=== PATIENT | female | born 1985 | race Caucasian/White ===

== ENCOUNTER 2020-12-18 15:01 | Emergency (ER) | payer SELFPAY ==
[~2020-12-18] VITALS: Ht 170.2 cm; Wt 77.1 kg
[2020-12-18 15:22] VITALS: BP 136/84
--- NOTE | 2020-12-18 15:28 | NUR ---
PT TO AWAIT IN LOBBY
--- NOTE | 2020-12-18 15:43 | NUR ---
PT TAKEN TO XRAY VIA W/C
--- NOTE | 2020-12-18 15:55 | NUR ---
PT RETURNED TO LOBBY
--- NOTE | 2020-12-18 16:15 | NUR ---
MAGALYS CERVANTES EXAMINING PT
--- NOTE | 2020-12-18 16:25 | NUR ---
35 y/o F BIB self from home c/o L knee pain s/p mechanical fall while hiking. Patient A&Ox4, wheelchair assisted, states she slipped and fell and landed onto a sharp rock causing laceration to L knee. Patient noted with bruising to L ankle, L anterior cleary, and abrasions to L anterior thigh. Bleeding controlled prior to arrival. States worsens with ambulating. Rates 6/10, sharp/constant, non-radiating. Denies numbness, tingling, loss of sensation. Denies other extremity pain or injury. Bed locked in lowest position, side rails x 1, call light in reach. Tetanus 6-7 years ago. PMh/Sx/Meds: Denies NKA
[2020-12-18] MEDS: LIDOCAINE MPF 1% 10 MG/ML VIAL INJ ONE ×2 (16:38→16:54)
[2020-12-18] MEDS: BACITRACIN OINT 500 UNITS/GM PKT TP ONE ×2 (16:38→16:54)
[2020-12-18] MEDS: KETOROLAC 30 MG/ML VIAL IM ONE (16:40)
--- NOTE | 2020-12-18 16:40 | NUR ---
EMT AT BEDSIDE FOR WOUND IRRIGATION
[2020-12-18] MEDS ORDERED: BACITRACIN OINT 500 UNITS/GM PKT TP ONE (16:41)
[2020-12-18] MEDS ORDERED: LIDOCAINE MPF 1% 5 ML ONE (16:42)
--- NOTE | 2020-12-18 16:58 | NUR ---
MAGALYS Harman is at bedside for suture repair
[2020-12-18] MEDS ORDERED: AMOX-1000 PO (17:13)
[2020-12-18] MEDS ORDERED: NAPR-54 PO (17:13)
[2020-12-18 17:30] VITALS: BP 136/84
--- NOTE | 2020-12-18 17:30 | NUR ---
Patient discharged with v/s stable. Written and verbal after care instructions given and explained. Patient alert, oriented and verbalized understanding of instructions. Ambulatory with steady gait. All questions addressed prior to discharge. ID band removed. Patient advised to follow up with PMD. Rx of AMOXICILLIN AND NAPROXEN given. Patient educated on indication of medication including possible reaction and side effects. Opportunity to ask questions provided and answered.
== END 2020-12-18 17:30 | disposition home or self-care (01) ==
LOC: MED 15:01
DX: S81.012A Laceration without foreign body, left knee, initial encounter (principal); W19.XXXA Unspecified fall, initial encounter; Y93.89 Activity, other specified; Y92.89 Other specified places as the place of occurrence of the external cause; Y99.8 Other external cause status
CPT/HCPCS: 12002; 73562; 96372; 99283; J1885; J2001; Q0092